=== PATIENT | female | born 1985 | race Caucasian/White ===

== ENCOUNTER → 2024-02-10 11:07 | Outpatient (REF) | payer BC, SELFPAY | LOC: HWWDC 11:07 | PROVIDERS: ATTENDING PHYSICIAN Physician Assistant Medical | DX: Z12.31 Encounter for screening mammogram for malignant neoplasm of breast (principal) | CPT/HCPCS: 77063; 77067 ==

== ENCOUNTER → 2025-02-11 08:12 | Outpatient (REF) | payer BC, SELFPAY | LOC: HWWDC 08:12 | PROVIDERS: ATTENDING PHYSICIAN Physician Assistant Medical | DX: Z12.31 Encounter for screening mammogram for malignant neoplasm of breast (principal) | CPT/HCPCS: 77063; 77067 ==

== ENCOUNTER → 2025-03-18 10:10 | Outpatient (REF) | payer BC, SELFPAY | LOC: HWRAD 10:10 | PROVIDERS: ATTENDING PHYSICIAN Obstetrics & Gynecology; FAMILY PHYSICIAN Physician Assistant Medical | DX: N92.0 Excessive and frequent menstruation with regular cycle (principal) | CPT/HCPCS: 76830; 76856 ==